=== PATIENT | male | born 1970 | race African-American/Black ===

== ENCOUNTER 2019-12-05 15:43 | Emergency (ER) | payer OTHER ==
[2019-12-05 17:08] LABS: RAPID GROUP A STREP NEGATIVE (NEGATIVE)
[2019-12-05] MEDS ORDERED: DEXAMETHASONE SOD PHOSPHATE 10MG/ML 1ML VIAL ONE (17:30)
== END 2019-12-05 17:37 | disposition home or self-care (01) ==
LOC: EDH 15:43
DX: J06.9 Acute upper respiratory infection, unspecified (principal); E78.00 Pure hypercholesterolemia, unspecified; F31.9 Bipolar disorder, unspecified; F41.9 Anxiety disorder, unspecified; Z87.891 Personal history of nicotine dependence
CPT/HCPCS: 87804 ×2; 87880; 96372; 99283; J1100